=== PATIENT | female | born 1985 | race African-American/Black ===

== ENCOUNTER 2017-05-27 00:42 | Emergency (ER) | payer OTHER, BC ==
[~2017-05-27] VITALS: Ht 160 cm; Wt 67.0 kg
[2017-05-27] MEDS ORDERED: VALIUM5 MG PO (02:56)
[2017-05-27] MEDS ORDERED: MOTRIN800 MG PO (02:56)
[2017-05-27] MEDS ORDERED: FIORICET 50-301 EAC1 PO (02:56)
[2017-05-27 04:29] VITALS: BP 123/76
== END 2017-05-27 04:30 | disposition home or self-care (01) ==
LOC: EME 00:42
DX: S16.1XXA Strain of muscle, fascia and tendon at neck level, initial encounter (principal); S06.0X0A Concussion without loss of consciousness, initial encounter; V49.40XA Driver injured in collision with unspecified motor vehicles in traffic accident, initial encounter; Y92.488 Other paved roadways as the place of occurrence of the external cause
CPT/HCPCS: 72040; 99281; 99284